=== PATIENT | male | born 1960 | race Caucasian/White ===

== ENCOUNTER → 2017-04-04 | Outpatient (CLI) | payer OTHER ==
[~2017-04-04] MED LIST: ADVIN25/60 INH; ALBU1AER9 INH; ASPI325T45 PO; BENZ100C84 PO; CARB200T PO; GABA-113 PO; HYG/25 PO; LISI-461 PO; METO50TA16 PO; MULTTAB58 PO; PRIM50TA29 PO; QUET1TAB91 PO; SIMV20TA2 PO; TRAZ100T29 PO
[2017-04-04 18:24] LABS: THYROID STIMULATING HORMONE 0.029 uIu/ml (0.300-4.500)
[2017-04-04 18:25] LABS: PROLACTIN 7.03 ng/mL
[2017-04-09 21:53] LABS: ILGF1 Z SCORE MALE 0.4 SD (-2.0 - +2.0)
== END | disposition home or self-care (01) ==
LOC: C.LABMFLN 13:53
PROVIDERS: ATTEND Internal Medicine Endocrinology, Diabetes & Metabolism
DX: R94.6 Abnormal results of thyroid function studies (principal); E04.2 Nontoxic multinodular goiter

== ENCOUNTER → 2017-06-06 | Outpatient (CLI) | payer OTHER | END | disposition home or self-care (01) | LOC: C.LABMFLN 14:12 | PROVIDERS: ATTEND Internal Medicine Endocrinology, Diabetes & Metabolism | DX: R94.6 Abnormal results of thyroid function studies (principal); E04.2 Nontoxic multinodular goiter ==